=== PATIENT | male | born 1930 | race Caucasian/White ===

== ENCOUNTER 2018-03-27 15:02 | Inpatient (IN) | payer MEDICARE ==
[2018-03-27 15:45] LABS: % BASOPHILS 1.2 % (0.0-2.0); % EOSINOPHILS 1.1 % (0.0-5.0); % LYMPHOCYTES 17.3 % (20.0-50.0); % MONOCYTES 10.5 % (2.0-10.0); % NEUTROPHILS 69.9 % (40.0-80.0); BASOPHILE ABSOLUTE 0.1 Th/cumm (0-0.2); EOSINOPHILE ABSOLUTE 0.1 Th/cmm (0.1-0.4); HEMATOCRIT 34.8 % (41.0-60); HEMOGLOBIN 11.7 gm/dL (12-16); LYMPHOCYTE ABSOLUTE 1.1 Th/cmm (1.5-3.0); MEAN CELL VOLUME 83.1 fl (80-99); MEAN CORPUSCULAR HEMOGLOBIN 27.9 pg (27.0-31.0); MEAN CORPUSCULAR HGB CONC 33.6 pg (28.0-36.0); MEAN PLATELET VOLUME 7.1 fl; MONOCYTE ABSOLUTE 0.6 Th/cmm (0.3-1.0); NEUTROPHILE ABSOLUTE 4.2 Th/cmm (1.8-8.0); PLATELET COUNT 198 Th/cmm (150-400); RED BLOOD COUNT 4.19 Mil/cmm (3.80-5.80); RED CELL DISTRIBUTION WIDTH 12.9 % (11.5-20.0); WHITE BLOOD COUNT 6.1 Th/cmm (4.8-10.8)
[2018-03-27 16:03] LABS: ALB/GLOB RATIO 1.6 (1.0-1.8); ALBUMIN 3.7 gm/dL (4.2-5.5); ALKALINE PHOSPHATASE 62 U/L (34-104); ANION GAP 10.9 (7.0-16.0); BILIRUBIN,TOTAL 0.9 mg/dL (0.3-1.0); BUN - UREA NITROGEN 31 mg/dL (7-25); CHLORIDE 105 mEq/L (98-107); CREATININE - SERUM 1.5 mg/dL (0.7-1.3); GLUCOSE 136 mg/dL (70-105); PHOSPHOROUS 3.4 mg/dL (2.5-5.0); POTASSIUM SERUM 3.9 mEq/L (3.5-5.1); SGOT 15 U/L (13-39); SGPT/ALT 17 U/L (7-52); SODIUM SERUM 136 mEq/L (136-145)
[2018-03-27 16:25] LABS: URINE SOURCE CLEAN C
[2018-03-27 16:30] LABS: URINE BILIRUBIN NEGATIVE (NEGATIVE); URINE BLOOD NEGATIVE (NEGATIVE); URINE CLARITY CLEAR (CLEAR); URINE COLOR YELLOW; URINE GLUCOSE (UA) NEGATIVE (NEGATIVE); URINE KETONE NEGATIVE (NEGATIVE); URINE LEUKOCYTE ESTERASE NEGATIVE (NEGATIVE); URINE MICROSCOPIC INDICATED? YES; URINE NITRATE NEGATIVE (NEGATIVE); URINE PROTEIN NEGATIVE (NEGATIVE); URINE UROBILINOGEN 0.2 E.U./dL (0.2 - 1.0)
[2018-03-27 16:32] LABS: URINE BACTERIA FEW /hpf (NONE SEEN); URINE EPITHELIAL CELLS OCCASIONAL /lpf (FEW); URINE RBC NONE SEEN /hpf (0-5); URINE WBC 0-2 /hpf (0-5)
[2018-03-27 16:37] LABS: AMPHETAMINE URINE NEGATIVE (NEGATIVE); BARBITURATES URINE NEGATIVE (NEGATIVE); BENZODIAZEPINES QUAL URINE POSITIVE (NEGATIVE); CANNABINOID THC NEGATIVE (NEGATIVE); COCAINE METABOLITE QUAL URINE NEGATIVE (NEGATIVE); METHADONE URINE NEGATIVE (NEGATIVE); METHAMPHETAMINES QUAL URINE NEGATIVE (NEGATIVE); OPIATES (MORPHINE) QUAL. URINE NEGATIVE (NEGATIVE); PHENCYCLIDINE (PCP) URINE NEGATIVE (NEGATIVE); TRICYCLICS (TCA) QUAL. URINE NEGATIVE (NEGATIVE)
--- NOTE | 2018-03-27 17:07 | ED Physician Chart ---
ED Chief Complaint/HPI - Patient Information Date Seen:: 03/27/18 Time Seen:: 15:28 Chief Complaint:: aggressive behavior History of Present Illness:: aggressive behavior towards staff and residents Allergies:: Allergies Allergy/AdvReac Type Severity Reaction Status Date / Time shellfish derived Allergy Verified 03/27/18 15:21 Vitals:: Vital Signs - 8 hr 03/27/18 15:28 Temp 98.4 F HR 74 RR 18 BP 95/56 O2 Sat % 95 ED Review of Systems - Review of Systems General/Constitutional: No fever, No chills, No weight loss, No weakness, No diaphoresis, No edema, No loss of appetite Skin: No skin lesions, No rash, No bruising Head: No headache, No light-headedness Eyes: No loss of vision, No pain, No diplopia ENT: No earache, No nasal drainage, No sore throat, No tinnitus Neck: No neck pain, No swelling, No thyromegaly, No stiffness, No mass noted Cardio Vascular: No chest pain, No palpitations, No PND, No orthopnea, No edema Pulmonary: No SOB, No cough, No sputum, No wheezing GI: No nausea, No vomiting, No diarrhea, No pain, No melena, No hematochezia, No constipation, No hematemesis G/U: No dysuria, No frequency, No hematuria Musculoskeletal: No bone or joint pain, No back pain, No muscle pain Endocrine: No polyuria, No polydipsia Psychiatric: Prior psych history Hematopoietic: No bruising, No lymphadenopathy ED Past Medical History - Past Medical History Obtainable: Yes Past Medical History: DM, Dyslipidemia, Dementia, Other (repeated falls; Alzheimer's; schizophrenia; delusional disorders) Family Medical History - Family Member Mother History Unknown: Yes ED Physical Exam - Physical Examination General/Constitutional: Well-developed, well-nourished, Non-toxic appearing Head: Atraumatic Eyes: Lids, conjuctiva normal, PERRL, EOMI Skin: Nl inspection, No rash, No skin lesions, No ecchymosis, Well hydrated, No lymphadenopathy Neck: Nontender, Full ROM w/o pain, No JVD, No nuchal rigidity, No bruit, No mass, No stridor Respiratory: Nl effort/Exclusion, Clear to Auscultation, No Wheeze/Rhonchi/Rales Cardio Vascular: RRR, No murmur, gallop, rubs, NL S1 S2 GI: No tenderness/rebounding/guarding, No organomegaly, Normal BS's, Nondistended, No mass/bruits, No McBurney tenderness : No CVA tenderness Extremities: No tenderness or effusion, Full ROM, normal strength in all extremities, No edema, Normal digits & nails Other Neuro/Psych comments:: blunted mood. Misc: Normal back, No paraspinal tenderness ED Labs/Radiology/EKG Results - Lab Results Results: Laboratory Tests 03/27/18 03/27/18 03/27/18 15:35 15:35 15:35 WBC 6.1 RBC 4.19 Hgb 11.7 L Hct 34.8 L MCV 83.1 MCH 27.9 MCHC Differential 33.6 RDW 12.9 Plt Count 198 MPV 7.1 Neutrophils % 69.9 Lymphocytes % 17.3 L Monocytes % 10.5 H Eosinophils % 1.1 Basophils % 1.2 Sodium 136 Potassium 3.9 Chloride 105 Carbon Dioxide 24.0 Anion Gap 10.9 BUN 31 H Creatinine 1.5 H Est GFR ( Amer) TNP Est GFR (Non-Af Amer) TNP BUN/Creatinine Ratio 20.7 Glucose 136 H Calcium 9.0 Phosphorus 3.4 Magnesium 2.0 Total Bilirubin 0.9 AST 15 ALT 17 Alkaline Phosphatase 62 Total Protein 6.0 Albumin 3.7 L Globulin 2.3 Albumin/Globulin Ratio 1.6 TSH 1.00 Urine Source Urine Color Urine Clarity Urine pH Ur Specific [place] Urine Protein Urine Glucose (UA) Urine Ketones Urine Blood Urine Nitrate Urine Bilirubin Urine Urobilinogen Ur Leukocyte Esterase Urine RBC Urine WBC Ur Epithelial Cells Urine Bacteria Urine Opiates Screen Urine Methadone Screen Ur Barbiturates Screen Ur Tricyclics Screen Ur Phencyclidine Scrn Amphetamines Screen U Methamphetamines Scrn U Benzodiazepines Scrn U Cocaine Metab Screen U Cannabinoids Screen 03/27/18 03/27/18 16:15 16:15 WBC RBC Hgb Hct MCV MCH MCHC Differential RDW Plt Count MPV Neutrophils % Lymphocytes % Monocytes % Eosinophils % Basophils % Sodium Potassium Chloride Carbon Dioxide Anion Gap BUN Creatinine Est GFR ( Amer) Est GFR (Non-Af Amer) BUN/Creatinine Ratio Glucose Calcium Phosphorus Magnesium Total Bilirubin AST ALT Alkaline Phosphatase Total Protein Albumin Globulin Albumin/Globulin Ratio TSH Urine Source CLEAN C Urine Color YELLOW Urine Clarity CLEAR Urine pH 6.0 Ur Specific [place] 1.015 Urine Protein NEGATIVE Urine Glucose (UA) NEGATIVE Urine Ketones NEGATIVE Urine Blood NEGATIVE Urine Nitrate NEGATIVE Urine Bilirubin NEGATIVE Urine Urobilinogen 0.2 Ur Leukocyte Esterase NEGATIVE Urine RBC NONE SEEN Urine WBC 0-2 Ur Epithelial Cells OCCASIONAL Urine Bacteria FEW Urine Opiates Screen NEGATIVE Urine Methadone Screen NEGATIVE Ur Barbiturates Screen NEGATIVE Ur Tricyclics Screen NEGATIVE Ur Phencyclidine Scrn NEGATIVE Amphetamines Screen NEGATIVE U Methamphetamines Scrn NEGATIVE U Benzodiazepines Scrn POSITIVE H U Cocaine Metab Screen NEGATIVE U Cannabinoids Screen NEGATIVE ED Septic Shock - . Is Septic Shock (SBP<90, OR Lactate>4 mmol\L) present?: No - <6hrs of presentation: Vital Signs: Vital Signs - 8 hr 03/27/18 15:28 Temp 98.4 F HR 74 RR 18 BP 95/56 O2 Sat % 95 ED Reassessment (Disposition) - Reassessment Reassessment Condition:: Unchanged - Diagnosis Diagnosis:: Alzheimer's Dementia Diabetes Repeated falls Schizophrenia Delusional disorders - Patient Disposition Discharge/Transfer:: Acute Care w/in this hosp
[2018-03-27 18:46] VITALS: BP 158/105
[2018-03-27] MEDS ORDERED: Magnesium Hydroxide (MOM) 30 mL UDC PO PRN (20:01)
[2018-03-27] MEDS ORDERED: Fleet Enema 135 mL RC PRN (20:01)
[2018-03-27] MEDS: INSULIN ASPART SLIDING SCALE 100 UNITS/ML UNIT SUBQ SCH (21:00)
[2018-03-28] MEDS: INSULIN ASPART SLIDING SCALE 100 UNITS/ML UNIT SUBQ SCH ×3 (06:39→21:22)
[2018-03-28] MEDS ORDERED: GLIPIZIDE 20 MG PO SCH (09:00)
[2018-03-28] MEDS ORDERED: Non-Formulary Item 1 EA (Cranberry Fruit Extract [Cranberry] 425 MG) PO SCH (09:00)
[2018-03-28] MEDS ORDERED: Non-Formulary Item 1 EA (Cran/Vitc/Mannose/Fos/Bromeln [Uti-Stat Liquid] 3,875 MG) PO SCH (09:00)
[2018-03-28] MEDS ORDERED: RISPERIDONE 0.5 MG PO SCH (09:00)
[2018-03-28] MEDS: Multivitamin Tab PO SCH (10:27)
--- NOTE | 2018-03-28 22:18 | History & Physical ---
ADMIT DATE: 03/27/2018 REASON FOR ADMISSION: Psychiatric disorder. HISTORY OF PRESENT ILLNESS: This is an 87-year-old male with underlying history of diabetes, hypertension, BPH, dementia, mental disorder, hyperlipidemia, admitted to [facility] for underlying psychiatric illness by Dr. Duong. Dr. Duong requested a medical H and P on this patient. During my evaluation, the patient was very sleepy, unable to communicate well. Most of the history obtained by reviewing the available medical records. Also nursing staff report, the patient has been not eating and drinking well since admission. PAST MEDICAL HISTORY: Diabetes, hypertension, hyperlipidemia, BPH, mental disorders. PAST SURGICAL HISTORY: None reported. SOCIAL HISTORY: No reported alcohol, tobacco or street drug use. MEDICATIONS: Tylenol, aspirin, Colace, Pepcid, Glucotrol, glipizide, hydralazine, Ativan, milk of mag Zofran, Risperdal, Zocor, Flomax, and Ambien. REVIEW OF SYSTEMS: Unobtainable. The patient with underlying altered mental status. PHYSICAL EXAMINATION: VITAL SIGNS: Temperature 97.4, pulse 58, respirations 19, blood pressure 119/58. HEART: S1 and S2 normal LUNGS: Clear. ABDOMEN: Soft, nontender. NEUROLOGIC: The patient does not follow commands. EXTREMITIES: No edema. AVAILABLE LABORATORY DATA: Has been reviewed. ASSESSMENT: 1. Diabetes with chronic kidney disease. 2. Hypertension. 3. Hyperlipidemia. 4. Benign prostatic hypertrophy. 5. Hypertension. 6. Mental disorder. PLAN: We will discontinue patient's glipizide due to poor p.o. intake. Follow up labs in the morning. Monitor blood sugar. Monitor vitals. Psychotropic medications per psychiatrist. The patient's condition and plan discussed with nursing staff. JOB# [id number] MIKE
[2018-03-29] MEDS: INSULIN ASPART SLIDING SCALE 100 UNITS/ML UNIT SUBQ SCH ×4 (06:50→21:15)
[2018-03-29 08:20] LABS: ALB/GLOB RATIO 1.5 (1.0-1.8); ALBUMIN 3.6 gm/dL (4.2-5.5); ALKALINE PHOSPHATASE 63 U/L (34-104); ANION GAP 12.5 (7.0-16.0); BILIRUBIN,TOTAL 1.1 mg/dL (0.3-1.0); BUN - UREA NITROGEN 23 mg/dL (7-25); CALCIUM SERUM 9.1 mg/dL (8.6-10.3); CHLORIDE 104 mEq/L (98-107); CREATININE - SERUM 1.3 mg/dL (0.7-1.3); GLUCOSE 193 mg/dL (70-105); POTASSIUM SERUM 4.5 mEq/L (3.5-5.1); SGOT 16 U/L (13-39); SGPT/ALT 14 U/L (7-52); SODIUM SERUM 136 mEq/L (136-145)
[2018-03-29] MEDS: Multivitamin Tab PO SCH (09:33)
[2018-03-30] MEDS: INSULIN ASPART SLIDING SCALE 100 UNITS/ML UNIT SUBQ SCH ×4 (06:36→21:16)
[2018-03-30] MEDS: Multivitamin Tab PO SCH (08:25)
[2018-03-31] MEDS: INSULIN ASPART SLIDING SCALE 100 UNITS/ML UNIT SUBQ SCH ×4 (06:53→21:42)
[2018-03-31] MEDS: Multivitamin Tab PO SCH (09:05)
[2018-03-31] MEDS ORDERED: Haloperidol Lactate 5 mg/mL 1mL Vial IM ONE (15:56)
--- NOTE | 2018-03-31 23:47 | Psychiatric Evaluation ---
DATE OF SERVICE: PSYCHIATRIC INITIAL EVALUATION AND MENTAL STATUS EXAM THE PATIENT'S AGE: 87. SEX: Male. PHYSICIAN: Dr. Duong. CHIEF COMPLAINT: Agitation and aggressive behavior. HISTORY OF PRESENT ILLNESS: The patient is an 87-year-old male, who was transferred from [facility] to [facility] because of increased agitation and irritability. The patient also has been restless and has been having a problem with temper and moods. The patient also has been angry. The patient tried to jump the fence in [facility] and he broke a denture. The patient also is still in angry and irritable mood and he is still agitated. PAST PSYCHIATRIC HISTORY: The patient has history of dementia. PAST MEDICAL HISTORY: The patient has dyslipidemia and diabetes mellitus. FAMILY PSYCHIATRIC HISTORY: Not contributory. SOCIAL HISTORY: The patient lives in [facility]. No known alcohol or drug use. ALLERGIES: No known allergies. MENTAL STATUS EXAMINATION: The patient appears his stated age. Irritable mood. Confused. Agitated easily on asking him questions. The patient did not answer questions regarding hallucinations or delusions, but seems to be preoccupied. The patient did not answer question regarding suicide or homicide. The patient was alert, but seems to be disoriented to time, place, person and situation. Impaired immediate and recent memory, but intact to remote memory and he remembered his date. Poor insight and poor judgment. ASSESSMENT: PRIMARY DIAGNOSIS: Unspecified psychosis. SECONDARY DIAGNOSIS: Dementia, severe, with psychosis and behavioral disturbances. TREATMENT PLAN: Start the patient on Risperdal 0.5 mg twice a day. Also, monitor his behavior and his condition closely and adjust psychotropic medications. ESTIMATED LENGTH OF STAY: 5-7 days. THE PATIENT'S STRENGTHS AND WEAKNESSES: The patient's strength is that he can return back to [place]. Weaknesses is his poor impulse control and his ineffective coping. AFTER DISCHARGE PLAN: The patient will return back to [place] and outpatient treatment and followup will continue as an outpatient. CRITERIA FOR DISCHARGE: The patient will not be psychotic and will stabilize psychotropic medications and we will establish outpatient treatment plans. [facility]# [id number]
--- NOTE | 2018-04-01 00:52 | Progress Notes ---
DATE: 03/31/2018 The patient noted by staff ____, trying to leave the hospital, convinced that there is an underground tunnel and that his is trapped there. He wants to feed his in the tunnel. He is noted to be confused, forgetful, agitated, a lot of wanting behaviors ____ with the locked unit because of concerns that he would leave trying to see his who he believes is underneath the hospital. ASSESSMENT: The patient is delusional, bizarre, confused, currently under a higher level of care at this time. PLAN: We will continue to monitor. Medications were reviewed including doses and frequencies. Continue Risperdal and titrate appropriately. JOB# [id number]
[2018-04-01] MEDS: INSULIN ASPART SLIDING SCALE 100 UNITS/ML UNIT SUBQ SCH ×4 (06:48→21:32)
[2018-04-01] MEDS: Multivitamin Tab PO SCH (09:42)
--- NOTE | 2018-04-01 20:43 | Progress Notes ---
DATE: 03/30/2018 DATE: 03/30/2018 SUBJECTIVE: Chart reviewed and the patient interviewed. Also discussed the patient's condition with the staff and reviewed records and labs. The patient is still responding and is still agitated and gets aggressive with the staff. The patient also still needs lots of redirections, but he is still confused and gets agitated when staff tries to redirect him. The patient also is forgetful and is still guarded. Otherwise, the patient is compliant with taking his medications with no side effect of medications. ASSESSMENT: The patient is still confused and agitated. TREATMENT PLAN: Continue to monitor behavior and continue to adjust psychotropic medications and follow up closely. JOB# [id number]
--- NOTE | 2018-04-01 22:06 | Progress Notes ---
DATE: 04/01/2018 SUBJECTIVE: The patient transferred from [place] for agitation, irritability, restless, problems with his temper, apparently tried to jump the fence in [place], broke a denture. On [id number], the patient refusing to speak with me, in a Emi chair, noted to be demented. He seems to be mumbling to self, not talking to me, sleeping fairly well with tubing mill setter awakenings. No agitation per staff in the past 12 hours, but remains guarded, suspicious, highly impulsive, unpredictable. The patient became confused, agitated. Over the past 24 hours, physically aggressive, throwing objects at staff, requiring Haldol cocktail. ASSESSMENT: The patient refusing to speak with me, upset, angry. Events over the past 24 hours, agitation requiring Haldol cocktail. The patient is not safe for discharge. Continue Risperdal. Medications were noted. JOB# [id number]
--- NOTE | 2018-04-02 03:52 | Progress Notes ---
DATE: 03/29/2018 SUBJECTIVE: Chart reviewed and the patient interviewed. Also discussed the patient's condition with the staff and reviewed records and labs. The patient is still agitated and still has episodes of irritability. The patient also is still confused and forgetful and needs lots of redirections. The patient also is still hostile and aggressive and tries to hit staff, especially during redirecting him or help him with his ADLs. He also is trying to get of the chair ____. ASSESSMENT: The patient is still agitated and is still psychotic. TREATMENT PLAN: Continue to monitor his behavior and condition closely. Also, continue to work on his poor impulse control and anger and continue to follow up. JOB# [id number]
[2018-04-02] MEDS: INSULIN ASPART SLIDING SCALE 100 UNITS/ML UNIT SUBQ SCH ×4 (06:47→20:48)
--- NOTE | 2018-04-02 08:28 | Progress Notes ---
DATE: 04/02/2018 SUBJECTIVE: The patient transferred due to agitation and irritability. On [id number], the patient is not wanting to talk to me; mumbling to self; sleeping, but arousable, but not saying anything back to me. The patient has been unruly on the units. He did require Haldol cocktail while he has been here, seems somewhat calmer at this time, sleeping for about 6-7 hours, no agitation overnight, seems somewhat calmer per staff, but does not talk to me. Medications were noted. ASSESSMENT: The patient remains symptomatic; impulsive; unpredictable, but calmer, still confused. PLAN: We will continue to monitor. Continue Risperdal. We will monitor and follow up. JOB# [id number]
[2018-04-02] MEDS: Multivitamin Tab PO SCH (10:10)
[2018-04-03] MEDS: INSULIN ASPART SLIDING SCALE 100 UNITS/ML UNIT SUBQ SCH ×4 (06:44→21:37)
[2018-04-03] MEDS: Multivitamin Tab PO SCH (09:41)
--- NOTE | 2018-04-03 11:57 | Progress Notes ---
DATE: 04/03/2018 SUBJECTIVE: The patient is an 87-year-old male transferred from [facility] due to increased agitation, irritability, restlessness, problems with his temper, mood swings, apparently at some point tried to jump the fence, history of dementia. I have been seeing the patient over the past few days. Covering for Dr. Duong. The patient is with noted social withdrawal, mostly isolative. Slept for about 7 hours. No behavioral issues. He is only oriented to name. He does not know where he is. He does not know why he is here. He does not know the year, the month, nor the day of the week. He cannot tell me the city he is in. He is not sure about his address. He does not know what medical problems he has, he could not even tell me one of his medical problems, behavioral issue is noted, easily agitated, labile, and hostile at times. OBJECTIVE: The patient remains symptomatic, ongoing safety concerns, agitation and unruly behaviors, very disoriented, confused on exam, no overt SI or HI. ASSESSMENT AND PLAN: The patient requiring ongoing inpatient hospitalization, not safe for a lower level of care. We will adjust and titrate medications as tolerated. Consider increasing dose of Risperdal at this time based on my evaluation, review of nursing notes, [id number] evaluation. The patient does not have the capacity at this time to be involved in treatment nor disposition planning. JOB# [id number]
[2018-04-04] MEDS: INSULIN ASPART SLIDING SCALE 100 UNITS/ML UNIT SUBQ SCH ×4 (06:37→21:09)
[2018-04-04] MEDS: Multivitamin Tab PO SCH (08:30)
--- NOTE | 2018-04-04 12:17 | Progress Notes ---
DATE: 04/04/2018 SUBJECTIVE: An 87-year-old male transferred from [place]; agitation, irritability, restless, currently in a Emi chair, very confused, disoriented, AO to name only, very disoriented. Staff noting he needs a lot of prompting, redirection and did not sleep too much last night, mostly isolative, mumbling to self, does not know where he is, does not know what is going on, does not know the year, the month. Family is involved. Medications were noted including doses and frequencies. ASSESSMENT: The patient withdrawn, symptomatic. Ongoing need for redirection, trying to slide out of the Emi chair. PLAN: We will continue to monitor. I will adjust and titrate doses of medications. We will increase Risperdal from 0.5 to 0.75 mg b.i.d. for suspicious behaviors, underlying psychosis, ongoing unruly behaviors. JOB# [id number]
[2018-04-05] MEDS: INSULIN ASPART SLIDING SCALE 100 UNITS/ML UNIT SUBQ SCH ×4 (06:38→21:11)
[2018-04-05] MEDS: Multivitamin Tab PO SCH (08:57)
[2018-04-05 10:19] LABS: HEP A AB IGM Negative (Negative); HEP B CORE IGM Negative (Negative); HEP B SURFACE AG QL Negative (Negative); HEP C ANTIBODY 0.1 s/co ratio (0.0-0.9)
--- NOTE | 2018-04-05 20:53 | General Progress Note ---
Subjective - Review of Systems Service Date: 04/05/18 Subjective: Patient doing ok no new concern reported Objective - Results Result Diagrams: 03/27/18 15:35 03/29/18 07:17 Recent Labs: Laboratory Last Values WBC 6.1 Th/cmm (4.8-10.8) 03/27/18 15:35 RBC 4.19 Mil/cmm (3.80-5.80) 03/27/18 15:35 Hgb 11.7 gm/dL (12-16) L 03/27/18 15:35 Hct 34.8 % (41.0-60) L 03/27/18 15:35 MCV 83.1 fl (80-99) 03/27/18 15:35 MCH 27.9 pg (27.0-31.0) 03/27/18 15:35 MCHC Differential 33.6 pg (28.0-36.0) 03/27/18 15:35 RDW 12.9 % (11.5-20.0) 03/27/18 15:35 Plt Count 198 Th/cmm (150-400) 03/27/18 15:35 MPV 7.1 fl 03/27/18 15:35 Neutrophils % 69.9 % (40.0-80.0) 03/27/18 15:35 Lymphocytes % 17.3 % (20.0-50.0) L 03/27/18 15:35 Monocytes % 10.5 % (2.0-10.0) H 03/27/18 15:35 Eosinophils % 1.1 % (0.0-5.0) 03/27/18 15:35 Basophils % 1.2 % (0.0-2.0) 03/27/18 15:35 Sodium 136 mEq/L (136-145) 03/29/18 07:17 Potassium 4.5 mEq/L (3.5-5.1) 03/29/18 07:17 Chloride 104 mEq/L (98-107) 03/29/18 07:17 Carbon Dioxide 24.0 mEq/L (21.0-31.0) 03/29/18 07:17 Anion Gap 12.5 (7.0-16.0) 03/29/18 07:17 BUN 23 mg/dL (7-25) 03/29/18 07:17 Creatinine 1.3 mg/dL (0.7-1.3) 03/29/18 07:17 Est GFR ( Amer) TNP 03/29/18 07:17 Est GFR (Non-Af Amer) TNP 03/29/18 07:17 BUN/Creatinine Ratio 17.7 03/29/18 07:17 Glucose 193 mg/dL (70-105) H 03/29/18 07:17 POC Glucose 140 MG/DL (70 - 105) H 04/05/18 20:22 Hemoglobin A1c % 9.0 % (4.0-6.0) H 03/29/18 07:17 Calcium 9.1 mg/dL (8.6-10.3) 03/29/18 07:17 Phosphorus 3.4 mg/dL (2.5-5.0) 03/27/18 15:35 Magnesium 2.0 mg/dL (1.9-2.7) 03/27/18 15:35 Total Bilirubin 1.1 mg/dL (0.3-1.0) H 03/29/18 07:17 AST 16 U/L (13-39) 03/29/18 07:17 ALT 14 U/L (7-52) 03/29/18 07:17 Alkaline Phosphatase 63 U/L (34-104) 03/29/18 07:17 Total Protein 6.0 gm/dL (6.0-8.3) 03/29/18 07:17 Albumin 3.6 gm/dL (4.2-5.5) L 03/29/18 07:17 Globulin 2.4 gm/dL 03/29/18 07:17 Albumin/Globulin Ratio 1.5 (1.0-1.8) 03/29/18 07:17 TSH 1.00 uIU/ml (0.34-5.60) 03/27/18 15:35 Urine Source CLEAN C 03/27/18 16:15 Urine Color YELLOW 03/27/18 16:15 Urine Clarity CLEAR (CLEAR) 03/27/18 16:15 Urine pH 6.0 (4.6 - 8.0) 03/27/18 16:15 Ur Specific [place] 1.015 (1.005-1.030) 03/27/18 16:15 Urine Protein NEGATIVE mg/dL (NEGATIVE) 03/27/18 16:15 Urine Glucose (UA) NEGATIVE mg/dL (NEGATIVE) 03/27/18 16:15 Urine Ketones NEGATIVE mg/dL (NEGATIVE) 03/27/18 16:15 Urine Blood NEGATIVE (NEGATIVE) 03/27/18 16:15 Urine Nitrate NEGATIVE (NEGATIVE) 03/27/18 16:15 Urine Bilirubin NEGATIVE (NEGATIVE) 03/27/18 16:15 Urine Urobilinogen 0.2 E.U./dL (0.2 - 1.0) 03/27/18 16:15 Ur Leukocyte Esterase NEGATIVE (NEGATIVE) 03/27/18 16:15 Urine RBC NONE SEEN /hpf (0-5) 03/27/18 16:15 Urine WBC 0-2 /hpf (0-5) 03/27/18 16:15 Ur Epithelial Cells OCCASIONAL /lpf (FEW) 03/27/18 16:15 Urine Bacteria FEW /hpf (NONE SEEN) 03/27/18 16:15 Urine Opiates Screen NEGATIVE (NEGATIVE) 03/27/18 16:15 Urine Methadone Screen NEGATIVE (NEGATIVE) 03/27/18 16:15 Ur Barbiturates Screen NEGATIVE (NEGATIVE) 03/27/18 16:15 Ur Tricyclics Screen NEGATIVE (NEGATIVE) 03/27/18 16:15 Ur Phencyclidine Scrn NEGATIVE (NEGATIVE) 03/27/18 16:15 Amphetamines Screen NEGATIVE (NEGATIVE) 03/27/18 16:15 U Methamphetamines Scrn NEGATIVE (NEGATIVE) 03/27/18 16:15 U Benzodiazepines Scrn POSITIVE (NEGATIVE) H 03/27/18 16:15 U Cocaine Metab Screen NEGATIVE (NEGATIVE) 03/27/18 16:15 U Cannabinoids Screen NEGATIVE (NEGATIVE) 03/27/18 16:15 Hepatitis A IgM Ab Negative (Negative) 04/04/18 22:20 Hep Bs Antigen Negative (Negative) 04/04/18 22:20 Hep B Core IgM Ab Negative (Negative) 04/04/18 22:20 Hepatitis C Antibody 0.1 s/co ratio (0.0-0.9) 04/04/18 22:20 HIV 1&2 Antibody Screen NEGATIVE (NEG) 04/04/18 22:20 - Physical Exam Vitals and I&O: Vital Signs Temp 97.7 F 04/05/18 14:16 Pulse 70 04/05/18 14:16 Resp 18 04/05/18 14:16 BP 122/50 04/05/18 14:16 Pulse Ox 98 04/05/18 14:16 Intake & Output 04/05/18 04/05/18 04/06/18 06:59 18:59 06:59 Intake Total 500 Output Total 500 Balance 500 -500 Intake: Oral 500 Output: Urine 500 Stool 0 Other: # Voids 4 1 # Bowel Movements 0 0 Active Medications: Current Medications Acetaminophen (Tylenol) 650 mg PO Q4HR PRN PRN Reason: TEMP >101 OR PAIN Stop: 05/26/18 20:00 Amlodipine Besylate (Norvasc) 5 mg PO DAILY [facility] Stop: 05/27/18 08:59 Last Admin: 04/05/18 09:06 Dose: 5 mg Aspirin (Ecotrin) 81 mg PO DAILY [facility] Stop: 05/27/18 08:59 Last Admin: 04/05/18 08:57 Dose: 81 mg Bisacodyl (Dulcolax 10 Mg Supp) 10 mg RC DAILY PRN PRN Reason: IF MOM INEFFECTIVE Stop: 05/26/18 20:00 Docusate Sodium (Colace) 100 mg PO DAILY [facility] Stop: 05/27/18 08:59 Last Admin: 04/05/18 08:57 Dose: 100 mg Famotidine (Pepcid) 20 mg PO DAILY [facility] Stop: 05/27/18 08:59 Last Admin: 04/05/18 08:57 Dose: 20 mg Hydralazine HCl (Apresoline) 50 mg PO TID [facility] Stop: 05/26/18 20:59 Last Admin: 04/05/18 14:08 Dose: Not Given Insulin Aspart (Novolog Insulin Sliding Scale) 0 units SUBQ ACHS [facility]; Protocol Stop: 05/26/18 20:59 Last Admin: 04/05/18 17:07 Dose: Not Given Lorazepam (Ativan) 0.5 mg PO BID [facility]; Protocol Stop: 05/27/18 08:59 Last Admin: 04/05/18 17:10 Dose: Not Given Magnesium Hydroxide (Milk Of Magnesia) 30 ml PO HS PRN PRN Reason: Constipation Stop: 05/26/18 20:00 Multivitamins/Vitamin C (Theragran) 1 tab PO DAILY [facility] Stop: 05/27/18 08:59 Last Admin: 04/05/18 08:57 Dose: 1 tab Ondansetron HCl (Zofran Odt) 4 mg PO Q4H PRN PRN Reason: Nausea / Vomiting Stop: 05/26/18 20:00 Risperidone (Risperdal) 0.25 mg PO HS [facility]; Protocol Stop: 06/04/18 20:59 Senna (Senna) 17.2 mg PO HS [facility] Stop: 05/26/18 20:59 Last Admin: 04/04/18 21:06 Dose: 17.2 mg Simvastatin (Zocor) 20 mg PO HS [facility]; Protocol Stop: 05/26/18 20:59 Last Admin: 04/04/18 21:08 Dose: 20 mg Sodium Phosphate (Fleet Enema) 135 ml RC Q48H PRN PRN Reason: IF DULCOLAX INEFFECTIVE Stop: 05/26/18 20:00 Tamsulosin HCl (Flomax) 0.4 mg PO HS [facility] Stop: 05/26/18 20:59 Last Admin: 04/04/18 21:06 Dose: 0.4 mg Zolpidem Tartrate (Ambien) 5 mg PO HS PRN PRN Reason: Insomnia Stop: 05/26/18 20:13 Last Admin: 04/04/18 21:07 Dose: 5 mg Cardiovascular: Regular rate Lungs: Clear to auscultation Assessment/Plan - Problem List Patient Problems: All Active Problems AGGRESSIVE AND AGITATED BEHAVIOR (Acute) - Assessment Assessment: DM II HTN HYPERLIPIDEMIA BPH GERD MENTAL HEALTH DISORDER - Plan Plan: Continue current treatment Monitor vitals Monitor blood sugar Fall precaution Aspiration precaution Psych follow up Nutritional Asmnt/Malnutr-PDOC - Dietary Evaluation Malnutrition Findings (Please click <Entered> for more info): Nutritional Asmnt/Malnutrition Start: 03/30/18 17: 41 Text: Status: Complete Freq: Protocol: Document 03/30/18 17:41 BREANNA (Rec: 03/30/18 17:45 BREANNA [email or web address]) Nutritional Asmnt/Malnutrition Patient General Information Nutritional Screening Moderate Risk Diagnosis psychosis Pertinent Medical Hx/Surgical Hx DM, dyslipidemia, dementia, repeated falls, alzheimer's schizophrenia, delusional disorders Subjective Information Per EMR, PO intake 100% Current Diet Order/ Nutrition Support CCHO 60gm TAYLA Pertinent Medications colace, novolog, theragran, senna Pertinent Labs 03/29 glucose 193, POC 161-209, A1c 9.0 03/30 POC 225 Nutritional Hx/Data Height 1.63 m Height (Calculated Centimeters) 162.6 Current Weight (lbs) 72.575 kg Weight (Calculated Kilograms) 72.6 Weight (Calculated Grams) 91583.8 [place] Body Weight 130 Body Mass Index (BMI) 27.4 Weight Status Approriate GI Symptoms GI Symptoms None Last BM none noted Difficult in: None Skin Integrity/Comment: intact Current %PO Good (75-100%) Estimated Nutritional Goals BEE in Kcals: Using Current wt Calories/Kcals/Kg 23-27 Kcals Calculated 2776-9227 Protein: Using Current wt Protein g/k.8-1 Protein Calculated 58-73 Fluid: ml 1679-1970ml (1ml/kcal) Nutritional Problem 1. Problem Problem altered nutrition related labs Etiology hx of DM Signs/Symptoms: glucose 193, POC 161-225, a1c 9.0 Malnutrition Alert Is there a minimum of two criteria No selected? Query Text:Check all the applicable criteria. A minimum of two criteria are recommended for diagnosis of either severe or non-severe malnutrition. Malnutrition Related to Morbid Obesity Malnutrition related to morbid obesity No Intervention/Recommendation Comments 1. Continue with [facility] 60gm diet as ordered. 2. Monitor PO intake, wt, labs and skin integrity 3. F/U as moderate risk in 3-5 days, 04/02-04/04 Expected Outcomes/Goals Expected Outcomes/Goals 1. PO intake to meet at least 75% of nutritional needs. 2. Wt stability, skin to remain intact, labs to approach WNL.
--- NOTE | 2018-04-06 02:00 | Progress Notes ---
DATE: 04/05/2018 SUBJECTIVE: Chart reviewed and the patient interviewed. Also, discussed the patient's condition with the staff and reviewed records and labs. The patient seems to be slightly sedated and he is not able to walk like what he was a couple of days ago according to the staff. The patient also is slow in his responses and he is unable to carry on coherent conversation. The patient also is still restless and he still needs redirections. Otherwise, the patient is compliant with taking his medications and no side effects of medications except that sedation and it seems that his gait unsteady. ASSESSMENT: The patient still needs close monitoring and he is now high fall risk. TREATMENT PLAN: We will continue to monitor his behavior closely. Also, we will decrease Risperdal to 0.25 mg at bedtime and continue to adjust his medications. JOB# [id number]
[2018-04-06] MEDS: INSULIN ASPART SLIDING SCALE 100 UNITS/ML UNIT SUBQ SCH ×4 (07:30→21:00)
[2018-04-06] MEDS: Multivitamin Tab PO SCH (09:27)
[2018-04-07] MEDS: INSULIN ASPART SLIDING SCALE 100 UNITS/ML UNIT SUBQ SCH ×4 (06:42→20:48)
--- NOTE | 2018-04-07 07:26 | Progress Notes ---
DATE: 04/06/2018 DATE: 04/06/2018 SUBJECTIVE: Chart reviewed and the patient interviewed. Also discussed the patient's condition with the staff and reviewed records and labs. The patient is still sleepy and seems to be sedated and lethargic. The patient also still has difficulty answering questions, also showing poor appetite, although I decreased his Risperdal to 0.25 mg at bedtime and also the staff reported to me that medications was upheld. The patient is still lethargic. ASSESSMENT: The patient is still lethargic and confused. TREATMENT PLAN: We will discontinue Risperdal completely. Also, we will decrease hydralazine to 25 mg 3 times a day and continue to monitor his behavior closely. [facility]# [id number]
[2018-04-07] MEDS: Multivitamin Tab PO SCH (09:14)
--- NOTE | 2018-04-08 01:54 | Progress Notes ---
DATE: 04/07/2018 SUBJECTIVE: Chart reviewed and the patient interviewed. Also, discussed the patient's condition with the staff and reviewed records and labs. The patient is still lethargic, although he seems to be slightly easier to arouse and easier to respond. The patient also is still staying in bed most of the time. He also is still confused and forgetful. Otherwise, the patient continued to cooperate with his treatment. ASSESSMENT: The patient seems to be lethargic, but seems to be less than before. TREATMENT PLAN: Continue monitoring his behavior and his condition and continue to adjust psychotropic medications and followup. JOB# [id number]
[2018-04-08] MEDS: INSULIN ASPART SLIDING SCALE 100 UNITS/ML UNIT SUBQ SCH ×4 (06:45→21:37)
[2018-04-08] MEDS: Multivitamin Tab PO SCH (08:50)
--- NOTE | 2018-04-08 22:52 | Progress Notes ---
DATE: 04/08/2018 Case was discussed with staff of the patient, reviewed records. Covering for Dr. Duong. This is an 87-year-old male who ____ in 2018 because of agitation, aggressive behavior, brought from [facility]. The patient has been agitated, irritable, has been restless problem with temper and mood, angry, tried to jump on the fence at [facility] and broke his denture. Patient is unpredictable, impulsive. He is demented, confused. He can walk and feed himself. He is still unable to find a meaningful conversation. He is compliant with the medication with no side effects, no sedation or nausea, no extrapyramidal symptoms and we will continue the patient in group therapy, milieu therapy, adjust medication as needed. JOB# [id number]
[2018-04-09] MEDS: INSULIN ASPART SLIDING SCALE 100 UNITS/ML UNIT SUBQ SCH ×4 (06:58→20:53)
[2018-04-09] MEDS: Multivitamin Tab PO SCH (09:10)
--- NOTE | 2018-04-09 13:23 | General Progress Note ---
Subjective - Review of Systems Service Date: 04/08/18 Subjective: Patient seen and examined nursings staff reported that patient was given wrong dose of insulin blood sugar seems ok Objective - Results Result Diagrams: 03/27/18 15:35 03/29/18 07:17 Recent Labs: Laboratory Last Values WBC 6.1 Th/cmm (4.8-10.8) 03/27/18 15:35 RBC 4.19 Mil/cmm (3.80-5.80) 03/27/18 15:35 Hgb 11.7 gm/dL (12-16) L 03/27/18 15:35 Hct 34.8 % (41.0-60) L 03/27/18 15:35 MCV 83.1 fl (80-99) 03/27/18 15:35 MCH 27.9 pg (27.0-31.0) 03/27/18 15:35 MCHC Differential 33.6 pg (28.0-36.0) 03/27/18 15:35 RDW 12.9 % (11.5-20.0) 03/27/18 15:35 Plt Count 198 Th/cmm (150-400) 03/27/18 15:35 MPV 7.1 fl 03/27/18 15:35 Neutrophils % 69.9 % (40.0-80.0) 03/27/18 15:35 Lymphocytes % 17.3 % (20.0-50.0) L 03/27/18 15:35 Monocytes % 10.5 % (2.0-10.0) H 03/27/18 15:35 Eosinophils % 1.1 % (0.0-5.0) 03/27/18 15:35 Basophils % 1.2 % (0.0-2.0) 03/27/18 15:35 Sodium 136 mEq/L (136-145) 03/29/18 07:17 Potassium 4.5 mEq/L (3.5-5.1) 03/29/18 07:17 Chloride 104 mEq/L (98-107) 03/29/18 07:17 Carbon Dioxide 24.0 mEq/L (21.0-31.0) 03/29/18 07:17 Anion Gap 12.5 (7.0-16.0) 03/29/18 07:17 BUN 23 mg/dL (7-25) 03/29/18 07:17 Creatinine 1.3 mg/dL (0.7-1.3) 03/29/18 07:17 Est GFR ( Amer) TNP 03/29/18 07:17 Est GFR (Non-Af Amer) TNP 03/29/18 07:17 BUN/Creatinine Ratio 17.7 03/29/18 07:17 Glucose 193 mg/dL (70-105) H 03/29/18 07:17 POC Glucose 237 MG/DL (70 - 105) H 04/09/18 11:47 Hemoglobin A1c % 9.0 % (4.0-6.0) H 03/29/18 07:17 Calcium 9.1 mg/dL (8.6-10.3) 03/29/18 07:17 Phosphorus 3.4 mg/dL (2.5-5.0) 03/27/18 15:35 Magnesium 2.0 mg/dL (1.9-2.7) 03/27/18 15:35 Total Bilirubin 1.1 mg/dL (0.3-1.0) H 03/29/18 07:17 AST 16 U/L (13-39) 03/29/18 07:17 ALT 14 U/L (7-52) 03/29/18 07:17 Alkaline Phosphatase 63 U/L (34-104) 03/29/18 07:17 Total Protein 6.0 gm/dL (6.0-8.3) 03/29/18 07:17 Albumin 3.6 gm/dL (4.2-5.5) L 03/29/18 07:17 Globulin 2.4 gm/dL 03/29/18 07:17 Albumin/Globulin Ratio 1.5 (1.0-1.8) 03/29/18 07:17 TSH 1.00 uIU/ml (0.34-5.60) 03/27/18 15:35 Urine Source CLEAN C 03/27/18 16:15 Urine Color YELLOW 03/27/18 16:15 Urine Clarity CLEAR (CLEAR) 03/27/18 16:15 Urine pH 6.0 (4.6 - 8.0) 03/27/18 16:15 Ur Specific [place] 1.015 (1.005-1.030) 03/27/18 16:15 Urine Protein NEGATIVE mg/dL (NEGATIVE) 03/27/18 16:15 Urine Glucose (UA) NEGATIVE mg/dL (NEGATIVE) 03/27/18 16:15 Urine Ketones NEGATIVE mg/dL (NEGATIVE) 03/27/18 16:15 Urine Blood NEGATIVE (NEGATIVE) 03/27/18 16:15 Urine Nitrate NEGATIVE (NEGATIVE) 03/27/18 16:15 Urine Bilirubin NEGATIVE (NEGATIVE) 03/27/18 16:15 Urine Urobilinogen 0.2 E.U./dL (0.2 - 1.0) 03/27/18 16:15 Ur Leukocyte Esterase NEGATIVE (NEGATIVE) 03/27/18 16:15 Urine RBC NONE SEEN /hpf (0-5) 03/27/18 16:15 Urine WBC 0-2 /hpf (0-5) 03/27/18 16:15 Ur Epithelial Cells OCCASIONAL /lpf (FEW) 03/27/18 16:15 Urine Bacteria FEW /hpf (NONE SEEN) 03/27/18 16:15 Urine Opiates Screen NEGATIVE (NEGATIVE) 03/27/18 16:15 Urine Methadone Screen NEGATIVE (NEGATIVE) 03/27/18 16:15 Ur Barbiturates Screen NEGATIVE (NEGATIVE) 03/27/18 16:15 Ur Tricyclics Screen NEGATIVE (NEGATIVE) 03/27/18 16:15 Ur Phencyclidine Scrn NEGATIVE (NEGATIVE) 03/27/18 16:15 Amphetamines Screen NEGATIVE (NEGATIVE) 03/27/18 16:15 U Methamphetamines Scrn NEGATIVE (NEGATIVE) 03/27/18 16:15 U Benzodiazepines Scrn POSITIVE (NEGATIVE) H 03/27/18 16:15 U Cocaine Metab Screen NEGATIVE (NEGATIVE) 03/27/18 16:15 U Cannabinoids Screen NEGATIVE (NEGATIVE) 03/27/18 16:15 Hepatitis A IgM Ab Negative (Negative) 04/04/18 22:20 Hep Bs Antigen Negative (Negative) 04/04/18 22:20 Hep B Core IgM Ab Negative (Negative) 04/04/18 22:20 Hepatitis C Antibody 0.1 s/co ratio (0.0-0.9) 04/04/18 22:20 HIV 1&2 Antibody Screen NEGATIVE (NEG) 04/04/18 22:20 - Physical Exam Vitals and I&O: Vital Signs Temp 98.3 F 04/09/18 07:09 Pulse 79 04/09/18 07:09 Resp 19 04/09/18 07:09 BP 130/64 04/09/18 07:09 Pulse Ox 97 04/09/18 07:09 Intake & Output 04/08/18 04/09/18 04/09/18 18:59 06:59 18:59 Intake Total 1350 500 Balance 1350 500 Intake: Oral 1350 500 Other: # Voids 3 3 # Bowel Movements 0 0 Active Medications: Current Medications Acetaminophen (Tylenol) 650 mg PO Q4HR PRN PRN Reason: TEMP >101 OR PAIN Stop: 05/26/18 20:00 Last Admin: 04/09/18 06:59 Dose: 650 mg Amlodipine Besylate (Norvasc) 5 mg PO DAILY [facility] Stop: 05/27/18 08:59 Last Admin: 04/09/18 09:12 Dose: Not Given Aspirin (Ecotrin) 81 mg PO DAILY [facility] Stop: 05/27/18 08:59 Last Admin: 04/09/18 09:10 Dose: 81 mg Bisacodyl (Dulcolax 10 Mg Supp) 10 mg RC DAILY PRN PRN Reason: IF MOM INEFFECTIVE Stop: 05/26/18 20:00 Docusate Sodium (Colace) 100 mg PO DAILY [facility] Stop: 05/27/18 08:59 Last Admin: 04/09/18 09:10 Dose: 100 mg Famotidine (Pepcid) 20 mg PO DAILY [facility] Stop: 05/27/18 08:59 Last Admin: 04/09/18 09:09 Dose: 20 mg Hydralazine HCl (Apresoline) 25 mg PO TID [facility] Stop: 06/05/18 08:59 Last Admin: 04/09/18 09:12 Dose: Not Given Insulin Aspart (Novolog Insulin Sliding Scale) 0 units SUBQ ACHS [facility]; Protocol Stop: 05/26/18 20:59 Last Admin: 04/09/18 11:50 Dose: 4 units Lorazepam (Ativan) 0.5 mg PO BID [facility]; Protocol Stop: 05/27/18 08:59 Last Admin: 04/09/18 09:10 Dose: 0.5 mg Magnesium Hydroxide (Milk Of Magnesia) 30 ml PO HS PRN PRN Reason: Constipation Stop: 05/26/18 20:00 Multivitamins/Vitamin C (Theragran) 1 tab PO DAILY [facility] Stop: 05/27/18 08:59 Last Admin: 04/09/18 09:10 Dose: 1 tab Ondansetron HCl (Zofran Odt) 4 mg PO Q4H PRN PRN Reason: Nausea / Vomiting Stop: 05/26/18 20:00 Senna (Senna) 17.2 mg PO HS [facility] Stop: 05/26/18 20:59 Last Admin: 04/08/18 21:14 Dose: 17.2 mg Simvastatin (Zocor) 20 mg PO HS [facility]; Protocol Stop: 05/26/18 20:59 Last Admin: 04/08/18 21:15 Dose: 20 mg Sodium Phosphate (Fleet Enema) 135 ml RC Q48H PRN PRN Reason: IF DULCOLAX INEFFECTIVE Stop: 05/26/18 20:00 Tamsulosin HCl (Flomax) 0.4 mg PO HS [facility] Stop: 05/26/18 20:59 Last Admin: 04/08/18 21:14 Dose: 0.4 mg Zolpidem Tartrate (Ambien) 5 mg PO HS PRN PRN Reason: Insomnia Stop: 05/26/18 20:13 Last Admin: 04/08/18 23:26 Dose: 5 mg General: Alert Cardiovascular: Regular rate Lungs: Clear to auscultation Assessment/Plan - Problem List Patient Problems: All Active Problems AGGRESSIVE AND AGITATED BEHAVIOR (Acute) - Assessment Assessment: DM II HTN HYPERLIPIDEMIA BPH GERD MENTAL HEALTH DISORDER - Plan Plan: Monitor blood sugar closely 1:1 sitter Fall precaution Aspiration precaution Psych follow up Nutritional Asmnt/Malnutr-PDOC - Dietary Evaluation Malnutrition Findings (Please click <Entered> for more info): Nutritional Asmnt/Malnutrition Start: 03/30/18 17: 41 Text: Status: Complete Freq: Protocol: Document 03/30/18 17:41 BREANNA (Rec: 03/30/18 17:45 BREANNA [email or web address]) Nutritional Asmnt/Malnutrition Patient General Information Nutritional Screening Moderate Risk Diagnosis psychosis Pertinent Medical Hx/Surgical Hx DM, dyslipidemia, dementia, repeated falls, alzheimer's schizophrenia, delusional disorders Subjective Information Per EMR, PO intake 100% Current Diet Order/ Nutrition Support CCHO 60gm TAYLA Pertinent Medications colace, novolog, theragran, senna Pertinent Labs 03/29 glucose 193, POC 161-209, A1c 9.0 03/30 POC 225 Nutritional Hx/Data Height 1.63 m Height (Calculated Centimeters) 162.6 Current Weight (lbs) 72.575 kg Weight (Calculated Kilograms) 72.6 Weight (Calculated Grams) 66818.8 [place] Body Weight 130 Body Mass Index (BMI) 27.4 Weight Status Approriate GI Symptoms GI Symptoms None Last BM none noted Difficult in: None Skin Integrity/Comment: intact Current %PO Good (75-100%) Estimated Nutritional Goals BEE in Kcals: Using Current wt Calories/Kcals/Kg 23-27 Kcals Calculated 9288-8684 Protein: Using Current wt Protein g/k.8-1 Protein Calculated 58-73 Fluid: ml 1679-1971ml (1ml/kcal) Nutritional Problem 1. Problem Problem altered nutrition related labs Etiology hx of DM Signs/Symptoms: glucose 193, POC 161-225, a1c 9.0 Malnutrition Alert Is there a minimum of two criteria No selected? Query Text:Check all the applicable criteria. A minimum of two criteria are recommended for diagnosis of either severe or non-severe malnutrition. Malnutrition Related to Morbid Obesity Malnutrition related to morbid obesity No Intervention/Recommendation Comments 1. Continue with [facility] 60gm diet as ordered. 2. Monitor PO intake, wt, labs and skin integrity 3. F/U as moderate risk in 3-5 days, 04/02-04/04 Expected Outcomes/Goals Expected Outcomes/Goals 1. PO intake to meet at least 75% of nutritional needs. 2. Wt stability, skin to remain intact, labs to approach WNL.
--- NOTE | 2018-04-09 13:25 | General Progress Note ---
Subjective - Review of Systems Service Date: 04/08/18 Subjective: Patient seen and examined doing fine per nursing staff patient was given wrong dose of short acting insulin Objective - Results Result Diagrams: 03/27/18 15:35 03/29/18 07:17 Recent Labs: Laboratory Last Values WBC 6.1 Th/cmm (4.8-10.8) 03/27/18 15:35 RBC 4.19 Mil/cmm (3.80-5.80) 03/27/18 15:35 Hgb 11.7 gm/dL (12-16) L 03/27/18 15:35 Hct 34.8 % (41.0-60) L 03/27/18 15:35 MCV 83.1 fl (80-99) 03/27/18 15:35 MCH 27.9 pg (27.0-31.0) 03/27/18 15:35 MCHC Differential 33.6 pg (28.0-36.0) 03/27/18 15:35 RDW 12.9 % (11.5-20.0) 03/27/18 15:35 Plt Count 198 Th/cmm (150-400) 03/27/18 15:35 MPV 7.1 fl 03/27/18 15:35 Neutrophils % 69.9 % (40.0-80.0) 03/27/18 15:35 Lymphocytes % 17.3 % (20.0-50.0) L 03/27/18 15:35 Monocytes % 10.5 % (2.0-10.0) H 03/27/18 15:35 Eosinophils % 1.1 % (0.0-5.0) 03/27/18 15:35 Basophils % 1.2 % (0.0-2.0) 03/27/18 15:35 Sodium 136 mEq/L (136-145) 03/29/18 07:17 Potassium 4.5 mEq/L (3.5-5.1) 03/29/18 07:17 Chloride 104 mEq/L (98-107) 03/29/18 07:17 Carbon Dioxide 24.0 mEq/L (21.0-31.0) 03/29/18 07:17 Anion Gap 12.5 (7.0-16.0) 03/29/18 07:17 BUN 23 mg/dL (7-25) 03/29/18 07:17 Creatinine 1.3 mg/dL (0.7-1.3) 03/29/18 07:17 Est GFR ( Amer) TNP 03/29/18 07:17 Est GFR (Non-Af Amer) TNP 03/29/18 07:17 BUN/Creatinine Ratio 17.7 03/29/18 07:17 Glucose 193 mg/dL (70-105) H 03/29/18 07:17 POC Glucose 237 MG/DL (70 - 105) H 04/09/18 11:47 Hemoglobin A1c % 9.0 % (4.0-6.0) H 03/29/18 07:17 Calcium 9.1 mg/dL (8.6-10.3) 03/29/18 07:17 Phosphorus 3.4 mg/dL (2.5-5.0) 03/27/18 15:35 Magnesium 2.0 mg/dL (1.9-2.7) 03/27/18 15:35 Total Bilirubin 1.1 mg/dL (0.3-1.0) H 03/29/18 07:17 AST 16 U/L (13-39) 03/29/18 07:17 ALT 14 U/L (7-52) 03/29/18 07:17 Alkaline Phosphatase 63 U/L (34-104) 03/29/18 07:17 Total Protein 6.0 gm/dL (6.0-8.3) 03/29/18 07:17 Albumin 3.6 gm/dL (4.2-5.5) L 03/29/18 07:17 Globulin 2.4 gm/dL 03/29/18 07:17 Albumin/Globulin Ratio 1.5 (1.0-1.8) 03/29/18 07:17 TSH 1.00 uIU/ml (0.34-5.60) 03/27/18 15:35 Urine Source CLEAN C 03/27/18 16:15 Urine Color YELLOW 03/27/18 16:15 Urine Clarity CLEAR (CLEAR) 03/27/18 16:15 Urine pH 6.0 (4.6 - 8.0) 03/27/18 16:15 Ur Specific [place] 1.015 (1.005-1.030) 03/27/18 16:15 Urine Protein NEGATIVE mg/dL (NEGATIVE) 03/27/18 16:15 Urine Glucose (UA) NEGATIVE mg/dL (NEGATIVE) 03/27/18 16:15 Urine Ketones NEGATIVE mg/dL (NEGATIVE) 03/27/18 16:15 Urine Blood NEGATIVE (NEGATIVE) 03/27/18 16:15 Urine Nitrate NEGATIVE (NEGATIVE) 03/27/18 16:15 Urine Bilirubin NEGATIVE (NEGATIVE) 03/27/18 16:15 Urine Urobilinogen 0.2 E.U./dL (0.2 - 1.0) 03/27/18 16:15 Ur Leukocyte Esterase NEGATIVE (NEGATIVE) 03/27/18 16:15 Urine RBC NONE SEEN /hpf (0-5) 03/27/18 16:15 Urine WBC 0-2 /hpf (0-5) 03/27/18 16:15 Ur Epithelial Cells OCCASIONAL /lpf (FEW) 03/27/18 16:15 Urine Bacteria FEW /hpf (NONE SEEN) 03/27/18 16:15 Urine Opiates Screen NEGATIVE (NEGATIVE) 03/27/18 16:15 Urine Methadone Screen NEGATIVE (NEGATIVE) 03/27/18 16:15 Ur Barbiturates Screen NEGATIVE (NEGATIVE) 03/27/18 16:15 Ur Tricyclics Screen NEGATIVE (NEGATIVE) 03/27/18 16:15 Ur Phencyclidine Scrn NEGATIVE (NEGATIVE) 03/27/18 16:15 Amphetamines Screen NEGATIVE (NEGATIVE) 03/27/18 16:15 U Methamphetamines Scrn NEGATIVE (NEGATIVE) 03/27/18 16:15 U Benzodiazepines Scrn POSITIVE (NEGATIVE) H 03/27/18 16:15 U Cocaine Metab Screen NEGATIVE (NEGATIVE) 03/27/18 16:15 U Cannabinoids Screen NEGATIVE (NEGATIVE) 03/27/18 16:15 Hepatitis A IgM Ab Negative (Negative) 04/04/18 22:20 Hep Bs Antigen Negative (Negative) 04/04/18 22:20 Hep B Core IgM Ab Negative (Negative) 04/04/18 22:20 Hepatitis C Antibody 0.1 s/co ratio (0.0-0.9) 04/04/18 22:20 HIV 1&2 Antibody Screen NEGATIVE (NEG) 04/04/18 22:20 - Physical Exam Vitals and I&O: Vital Signs Temp 98.3 F 04/09/18 07:09 Pulse 79 04/09/18 07:09 Resp 19 04/09/18 07:09 BP 130/64 04/09/18 07:09 Pulse Ox 97 04/09/18 07:09 Intake & Output 04/08/18 04/09/18 04/09/18 18:59 06:59 18:59 Intake Total 1350 500 Balance 1350 500 Intake: Oral 1350 500 Other: # Voids 3 3 # Bowel Movements 0 0 Active Medications: Current Medications Acetaminophen (Tylenol) 650 mg PO Q4HR PRN PRN Reason: TEMP >101 OR PAIN Stop: 05/26/18 20:00 Last Admin: 04/09/18 06:59 Dose: 650 mg Amlodipine Besylate (Norvasc) 5 mg PO DAILY [facility] Stop: 05/27/18 08:59 Last Admin: 04/09/18 09:12 Dose: Not Given Aspirin (Ecotrin) 81 mg PO DAILY [facility] Stop: 05/27/18 08:59 Last Admin: 04/09/18 09:10 Dose: 81 mg Bisacodyl (Dulcolax 10 Mg Supp) 10 mg RC DAILY PRN PRN Reason: IF MOM INEFFECTIVE Stop: 05/26/18 20:00 Docusate Sodium (Colace) 100 mg PO DAILY [facility] Stop: 05/27/18 08:59 Last Admin: 04/09/18 09:10 Dose: 100 mg Famotidine (Pepcid) 20 mg PO DAILY [facility] Stop: 05/27/18 08:59 Last Admin: 04/09/18 09:09 Dose: 20 mg Hydralazine HCl (Apresoline) 25 mg PO TID [facility] Stop: 06/05/18 08:59 Last Admin: 04/09/18 09:12 Dose: Not Given Insulin Aspart (Novolog Insulin Sliding Scale) 0 units SUBQ ACHS [facility]; Protocol Stop: 05/26/18 20:59 Last Admin: 04/09/18 11:50 Dose: 4 units Lorazepam (Ativan) 0.5 mg PO BID [facility]; Protocol Stop: 05/27/18 08:59 Last Admin: 04/09/18 09:10 Dose: 0.5 mg Magnesium Hydroxide (Milk Of Magnesia) 30 ml PO HS PRN PRN Reason: Constipation Stop: 05/26/18 20:00 Multivitamins/Vitamin C (Theragran) 1 tab PO DAILY [facility] Stop: 05/27/18 08:59 Last Admin: 04/09/18 09:10 Dose: 1 tab Ondansetron HCl (Zofran Odt) 4 mg PO Q4H PRN PRN Reason: Nausea / Vomiting Stop: 05/26/18 20:00 Senna (Senna) 17.2 mg PO HS [facility] Stop: 05/26/18 20:59 Last Admin: 04/08/18 21:14 Dose: 17.2 mg Simvastatin (Zocor) 20 mg PO HS [facility]; Protocol Stop: 05/26/18 20:59 Last Admin: 04/08/18 21:15 Dose: 20 mg Sodium Phosphate (Fleet Enema) 135 ml RC Q48H PRN PRN Reason: IF DULCOLAX INEFFECTIVE Stop: 05/26/18 20:00 Tamsulosin HCl (Flomax) 0.4 mg PO HS [facility] Stop: 05/26/18 20:59 Last Admin: 04/08/18 21:14 Dose: 0.4 mg Zolpidem Tartrate (Ambien) 5 mg PO HS PRN PRN Reason: Insomnia Stop: 05/26/18 20:13 Last Admin: 04/08/18 23:26 Dose: 5 mg General: Alert Cardiovascular: Regular rate Lungs: Clear to auscultation Assessment/Plan - Problem List Patient Problems: All Active Problems AGGRESSIVE AND AGITATED BEHAVIOR (Acute) - Assessment Assessment: DM II HTN HYPERLIPIDEMIA BPH GERD MENTAL HEALTH DISORDER - Plan Plan: Monitor blood sugar closely 1:1 sitter Fall precaution Aspiration precaution Psych follow up Nutritional Asmnt/Malnutr-PDOC - Dietary Evaluation Malnutrition Findings (Please click <Entered> for more info): Nutritional Asmnt/Malnutrition Start: 03/30/18 17: 41 Text: Status: Complete Freq: Protocol: Document 03/30/18 17:41 BREANNA (Rec: 03/30/18 17:45 BREANNA [id number]) Nutritional Asmnt/Malnutrition Patient General Information Nutritional Screening Moderate Risk Diagnosis psychosis Pertinent Medical Hx/Surgical Hx DM, dyslipidemia, dementia, repeated falls, alzheimer's schizophrenia, delusional disorders Subjective Information Per EMR, PO intake 100% Current Diet Order/ Nutrition Support CCHO 60gm TAYLA Pertinent Medications colace, novolog, theragran, senna Pertinent Labs 03/29 glucose 193, POC 161-209, A1c 9.0 03/30 POC 225 Nutritional Hx/Data Height 1.63 m Height (Calculated Centimeters) 162.6 Current Weight (lbs) 72.575 kg Weight (Calculated Kilograms) 72.6 Weight (Calculated Grams) 11052.8 [place] Body Weight 130 Body Mass Index (BMI) 27.4 Weight Status Approriate GI Symptoms GI Symptoms None Last BM none noted Difficult in: None Skin Integrity/Comment: intact Current %PO Good (75-100%) Estimated Nutritional Goals BEE in Kcals: Using Current wt Calories/Kcals/Kg 23-27 Kcals Calculated 1069-3099 Protein: Using Current wt Protein g/k.8-1 Protein Calculated 58-73 Fluid: ml 1679-1970ml (1ml/kcal) Nutritional Problem 1. Problem Problem altered nutrition related labs Etiology hx of DM Signs/Symptoms: glucose 193, POC 161-225, a1c 9.0 Malnutrition Alert Is there a minimum of two criteria No selected? Query Text:Check all the applicable criteria. A minimum of two criteria are recommended for diagnosis of either severe or non-severe malnutrition. Malnutrition Related to Morbid Obesity Malnutrition related to morbid obesity No Intervention/Recommendation Comments 1. Continue with [facility] 60gm diet as ordered. 2. Monitor PO intake, wt, labs and skin integrity 3. F/U as moderate risk in 3-5 days, 04/02-04/04 Expected Outcomes/Goals Expected Outcomes/Goals 1. PO intake to meet at least 75% of nutritional needs. 2. Wt stability, skin to remain intact, labs to approach WNL.
--- NOTE | 2018-04-09 18:14 | Progress Notes ---
DATE: 04/09/2018 Case was discussed with staff of the patient, reviewed records. The patient continues to have poor insight, unpredictable, impulsive, needing redirection, demented, confused, unable to make safe plan for self-care. He is sleeping well, eating well. No side effects with the medication, no sedation, no nausea, no extrapyramidal symptoms and we will continue to work with the patient in group therapy, milieu therapy, adjust medication as needed. JOB# [id number]
[2018-04-10] MEDS: INSULIN ASPART SLIDING SCALE 100 UNITS/ML UNIT SUBQ SCH ×2 (06:31→12:14)
--- NOTE | 2018-04-10 08:16 | Discharge Summary ---
DATE OF DISCHARGE: 04/10/2018 DATE OF DISCHARGE: 04/10/2018. FINAL DIAGNOSIS AND PRIMARY DIAGNOSIS: Unspecified psychosis. SECONDARY DIAGNOSES: Dementia, moderate to severe, with psychotic features and behavior disturbances. REASON FOR HOSPITALIZATION: The patient was admitted to the hospital from [facility] because of increased agitation and irritability and the patient was having a temper tantrum and increased agitation and unable to follow directions. HOSPITAL COURSE: The patient continued to be anxious and continued to be in irritable mood. The patient was given Risperdal. Risperdal made the patient sedated and I decreased Risperdal gradually, but the patient was too sedated and finally I stopped Risperdal completely. The patient was alert and he was not sedated. The patient also was able to follow directions. He was given Ativan dose of 0.5 mg twice a day with no problems. PHYSICAL EXAMINATION: The patient showed no major medical problems except the patient was sedated there. AFTER DISCHARGE PLANS: [facility] according to staff did not accept the patient. The patient was discharged and accepted by [facility]. He was to be followed there. DISCHARGE ACTIVITIES: As tolerated. EXPECTED OUTCOME AFTER DISCHARGE: Fair if the patient continues to take his medications and follow up with treatment plans. JOB# [id number]
[2018-04-10] MEDS: Multivitamin Tab PO SCH (09:06)
--- NOTE | 2018-04-10 11:37 | Progress Notes ---
DATE: SUBJECTIVE: Chart reviewed and the patient interviewed. Also discussed the patient's condition with the staff and reviewed records and labs. The patient still has episodes of yelling, but less than before. The patient is more alert and seems to be disoriented, but at least is not as sedated. Planning to discharge the patient today and the [facility] accepted him. JOB# [id number]
== END 2018-04-10 16:15 | DRG 885 ==
LOC: ER 15:02 → GERO2 17:10
PROVIDERS: ADMIT Psychiatry & Neurology Psychiatry; ATTEND Psychiatry & Neurology Psychiatry
DX: F29 Unspecified psychosis not due to a substance or known physiological condition (principal); F02.81 Dementia in other diseases classified elsewhere, unspecified severity, with behavioral disturbance; N18.9 Chronic kidney disease, unspecified; E78.5 Hyperlipidemia, unspecified; G30.9 Alzheimer's disease, unspecified; F20.9 Schizophrenia, unspecified; F22 Delusional disorders; N40.0 Benign prostatic hyperplasia without lower urinary tract symptoms; I12.9 Hypertensive chronic kidney disease with stage 1 through stage 4 chronic kidney disease, or unspecified chronic kidney disease; E11.22 Type 2 diabetes mellitus with diabetic chronic kidney disease; K21.9 Gastro-esophageal reflux disease without esophagitis; Z91.013 Allergy to seafood; Z91.81 History of falling
CPT/HCPCS: 36415-UA; 80053-TC; 80074-90; 80307; 81001-TC; 82948-90; 83036-90; 83735-TC; 84100-TC; 84443-TC; 85025-TC; 86703-TC; J1200; J1815; Z7610